=== PATIENT | female | born 1950 | race Caucasian/White ===

== ENCOUNTER 2017-07-23 11:28 | Observation (INO) | payer OTHER ==
[~2017-07-23] VITALS: Ht 149.9 cm; Wt 68.9 kg
--- NOTE | 2017-07-23 11:52 | ED NEURO DEFICIT/STROKE ---
History of Present Illness General Chief Complaint: Neuro Symptoms/ Deficit Stated Complaint: MEMORY LOSS, ?CONFUSION PER FRIEND SINCE 9AM Source: patient, old records, friend Exam Limitations: no limitations Allergies Coded Allergies: epinephrine (PALPITATIONS 07/23/17) Triage Note: 66 YEAR OLD FEMALE TO ER WITH HER FRIEND, PT ALERT AND ORIENTED TO PERSON /PLACE AND TIME. PT UPSET DUE TO SHE CAN'T REMEBER WHAT SHE DID YESTERDAY AND STATES THAT SHE FEELS LIKE SHE CAN'T REMEMBER A LOT FROM THIS AM. OFFERS NO OTHER COMPLAINTS AT THIS TIME. NEUROS INTACT. SPEECH CLEAR Triage Nurses Notes Reviewed? yes Onset: Abrupt Duration: hour(s): (2.5), constant Timing: recent history Severity: moderate Vision Problem? No Glaucoma? No Impaired Ability: difficulty with recall Baseline: alert, oriented x 3 Associated Symptoms: confusion HPI: 66 Year old female hld, osteopenia presents with friends and family for evaluation after the patient states that she has had difficulty recalling events over the past 2-1/2 days. She states that she woke up this morning around 7:30 and states for approximately an hour and a half she cannot remember the events that occurred this morning or yesterday. The symptoms she states began yesterday however states she does not remember getting home 2 nights ago from a get together with friends. She states that time she had one glass of wine. She denies any drug use no chest pain no headache. She states the symptoms have been making her feel anxious and nauseous however denies vomiting. No fever no chills. No known fall or loss of consciousness. No history of similar episodes in the past. Her family history is significant both her mother and father had multiple strokes and she states that her mother she believes had memory issues with her stroke. She denies any arm or leg weakness no facial droop. The friends that are with her states she's been acting her normal self otherwise no slurred speech no change in her mental status. (Tejal PITTMAN,Alton) Vital Signs & Intake/Output Vital Signs & Intake/Output Vital Signs Date Time Temp Pulse Resp B/P B/P Pulse O2 O2 Flow FiO2 Mean Ox Delivery Rate 07/23 1919 97.8 89 18 119/77 98 Room Air Room Air 07/23 1901 98.2 96 18 122/70 95 Room Air 07/23 1415 97.7 62 16 128/77 94 Room Air 07/23 1136 98.0 100 18 158/92 98 Room Air Reconcile Medications Aspirin (Ecotrin*) 81 MG TABLET. 1 TAB PO DAILY HEART HEALTH (Reported) Calcium Carbonate (Calcium) (Unknown Strength) TABLET (Unknown Dose) PO DAILY SUPPLEMENT (Reported) Cholecalciferol (Vitamin D3) 1,000 UNIT TABLET 2,000 IU PO DAILY Vit D . [place]-3 Fatty Acids/Fish Oil (Fish Oil 1,000 MG Capsule) 340 MG-1,000 MG CAPSULE 1 CAP PO DAILY SUPPLEMENT (Reported) (Pollo HENRY,Maryann) Past History Travel History Traveled to [place] past 21 day No Medical History Any Pertinent Medical History? see below for history Neurological: NONE EENT: NONE Cardiovascular: hyperlipidemia Respiratory: NONE Gastrointestinal: NONE Hepatic: NONE Renal: NONE Musculoskeletal: NONE Psychiatric: NONE Endocrine: NONE Blood Disorders: NONE Cancer(s): NONE BARN BOSS/Reproductive: NONE Surgical History Surgical History: none Psychosocial History What is your primary language Iraqi Tobacco Use: Never used ETOH Use: denies use Illicit Drug Use: denies illicit drug use Family History Hx Contributory? No (Alton Lopez) Review of Systems Review of Systems Constitutional: Reports: see HPI. Comments Review of systems: See HPI, All other systems negative. Constitutional, no chills no fever HEENT: no sore throat no congestion Cardiovascular: No chest pain Skin: no rashes, no change in skin Respiratory: No dyspnea no cough GI: No nausea no vomiting, no diarrhea : No dysuria Muscle skeletal: No joint pain, no back pain, no neck pain, Neurologic: , no headache Psych: No stress Heme/endocrine: No bruising Immunology: No lymphadenopathy (Alton Lopez) Physical Exam Physical Exam General Appearance: well developed/nourished, no apparent distress, alert, awake , anxious Cranial Nerves: normal hearing, normal speech, PERRL Comments: Well-developed well-nourished person in no acute distress HEENT: Normal EENT exam; PERRL, EOMI, HEAD is atraumatic. moist mucous membranes. Neck: Supple, normal range of motion Back: Nontender, Full range of motion Cardiovascular: Regular rate and rhythms no murmurs rubs Respiratory: Chest nontender.There were no bony deformities, no asymmetry. No respiratory distress. Patient speaking in full complete sentences. Breath sounds clear to auscultation bilaterally: NO W/R/R Abdomen: Soft, nontender nondistended, no appreciable organomegaly. Normal bowel sounds. No rebound/guarding, Extremity: No edema, full range of motion of extremities, normal and equal pulses bilaterally, 5 out of 5 strength noted to bilateral upper and lower extremities Neuro: Alert oriented x3, motor sensory normal, cranial nerves II through XII grossly intact. There were no obvious focal neurologic abnormalities. Skin: No appreciable rash on exposed skin, skin is warm and dry. Psych: Mood and affect is normal, memory and judgment is normal. Core Measures CVA/TIA Diagnosis: No NIH Stroke Scale NIH Stroke Scale Response Value Level of Consciousness alert 0 LOC Questions answers both correctly 0 LOC Commands obeys both correctly 0 Best Gaze normal 0 Visual Hull no visual loss 0 Facial Paresis normal 0 Motor Arm - Left no drift 0 Motor Arm - Right no drift 0 Motor Leg - Left no drift 0 Motor Leg - Right no drift 0 Limb Ataxia no ataxia 0 Sensory normal 0 Best Language no aphasia 0 Dysarthria normal articulation 0 Extinction and Inattention no neglect 0 Total 0 Date Last Known Well: 07/20/17 Time Last Known Well: 1999 Symptom Start Date: 07/23/17 Symptom Start Time: 1911 Reason tPA not ordered Medical Contraindication Swallow Evaluation Pass Swallow eval date 07/23/17 Swallow eval time 1553 Sepsis Present: No Sepsis Focused Exam Completed? No (Alton Lopez) Progress Differential Diagnosis: drug intoxication, electrolyte imbalance, encephalitis, hypoglycemia, seizure disorder, Head injury, anoxic brain injury, (carbon monoxide exposure) intoxication, drug or alcohol withdrawal, herpes simplex encephalitis, and toxic-metabolic encephalopathy, delirium Diagnostic Imaging: Viewed by Me: CT Scan. Discussed w/RAD: CT Scan. Radiology Impression: PATIENT: DAVID PRINCE ANN PRESENT AGE: 66 PATIENT ACCOUNT NO: [id number] : 50 LOCATION: [facility] ([place]) ORDERING PHYSICIAN: Maxim Gutierrez DO SERVICE DATE: 07/23/17-1 EXAM TYPE: CAT - CT HEAD WO IV CONTRAST EXAMINATION: CT HEAD WITHOUT CONTRAST CLINICAL INFORMATION: Can't remember events from a.m. COMPARISON: None. TECHNIQUE: Contiguous axial imaging was performed from the skull base to vertex without intravenous administration of contrast. DLP: 609 mGy-cm. FINDINGS: There is no intracranial hemorrhage, large infarction, or mass lesion. There is no extra-axial collection. The ventricles are normal in size and configuration without evidence of hydrocephalus. The paranasal sinuses are clear. The mastoids and middle ear cavities are clear. IMPRESSION: No acute intracranial abnormality identified. If there is concern for transient global amnesia consider brain MRI for further evaluation if clinically indicated. DICTATED BY: Arvind Izquierdo MD DATE/TIME DICTATED:07/23/171151 RN CORONARY CARE UNIT:[facility] DATE/TIME TRANSCRIBED:07/23/171151 CONFIDENTIAL, DO NOT COPY WITHOUT APPROPRIATE AUTHORIZATION. <Electronically signed in Other Vendor System> SIGNED BY: Arvind Izquierdo MD 07/23/17 1208 Initial ED EKG: none (Alton Lopze) Plan of Care: Orders Procedure Date/time Status Heart Healthy Diet 07/23 D Active Telemetry/Fluorescent Lamp Replacer 07/23 1552 Active Patient Data 07/[address] in observation 07/23 1540 Active ED Holding Orders 07/23 1540 Active Vital Signs 07/23 1540 Active Code Status 07/23 1540 Active PROLACTIN 07/23 1408 Complete EKG 07/23 1241 Active URINE DRUG SCREEN FOR ER ONLY 07/23 1221 Complete ETHANOL 07/23 1221 Complete COMPREHENSIVE METABOLIC PANEL 07/23 1221 Complete CBC WITHOUT DIFFERENTIAL 07/23 1221 Complete Intake & Output 07/23 1159 Active Marie Coma Scale 07/23 1140 Active NIH Stroke Scale 07/23 1139 Active Current Medications Sig/Josiane Start time Last Medication Dose Stop Time Status Admin Aspirin Buffered 81 MG DAILY 07/24 1000 AC (Ecotrin) Lorazepam 2 MG ONE ONE 07/23 1245 CAN (Ativan) 07/23 1246 Laboratory Tests 07/23/17 1408: Serum Alcohol < 10.0 07/23/17 1408: Anion Gap 9, Estimated GFR > 60, BUN/Creatinine Ratio 26.7 H, Glucose 92, Calcium 9.4, Total Bilirubin 0.4, AST 21, ALT 34, Alkaline Phosphatase 145 H, Total Protein 6.8, Albumin 3.9, Globulin 2.9, Albumin/Globulin Ratio 1.3, Prolactin 13.2, CBC w Diff NO MAN DIFF REQ, RBC 4.89, MCV 83.0, MCH 27.1, RDW 14.6 H, MPV 8.6, Gran % 57.5, Lymphocytes % 33.4, Monocytes % 7.5, Eosinophils % 1.2, Basophils % 0.4, Absolute Granulocytes 4.4, Absolute Lymphocytes 2.6, Absolute Monocytes 0.6, Absolute Eosinophils 0.1, Absolute Basophils 0, PUBS MCHC 32.7 L, Urine Opiates Screen < 100.00, Methadone Screen < 40, Barbiturate Screen < 60, Ur Phencyclidine Scrn < 6.00, Amphetamines Screen < 100, U Benzodiazepines Scrn < 85, Urine Cocaine Screen < 50, Urine Cannabis Screen < 5.00 07/23/17 1222: Prolactin Cancelled Labs ordered old records reviewed MRI ordered case discussed with Dr. Abad evaluate patient agrees with plan. Patient making Ativan 1 mg IV for MRI as she is feeling anxious with an enclosed MRI. [address] montgomery will consult. Dr. Abad spoke with Dr. Byers we will place her in telemetry it. PATIENT: DAVID PRINCE PRESENT AGE: 66 PATIENT ACCOUNT NO: [id number] : 50 LOCATION: [facility] ([place]) ORDERING PHYSICIAN: Maxim Gutierrez DO SERVICE DATE: 07/23/17-1140 EXAM TYPE: CAT - CT HEAD WO IV CONTRAST EXAMINATION: CT HEAD WITHOUT CONTRAST CLINICAL INFORMATION: Can't remember events from a.m. COMPARISON: None. TECHNIQUE: Contiguous axial imaging was performed from the skull base to vertex without intravenous administration of contrast. DLP: 609 mGy-cm. FINDINGS: There is no intracranial hemorrhage, large infarction, or mass lesion. There is no extra-axial collection. The ventricles are normal in size and configuration without evidence of hydrocephalus. The paranasal sinuses are clear. The mastoids and middle ear cavities are clear. IMPRESSION: No acute intracranial abnormality identified. If there is concern for transient global amnesia consider brain MRI for further evaluation if clinically indicated. DICTATED BY: Arvind Izquierdo MD DATE/TIME DICTATED:07/23/171151 RN CORONARY CARE UNIT:[facility] DATE/TIME TRANSCRIBED:07/23/171151 CONFIDENTIAL, DO NOT COPY WITHOUT APPROPRIATE AUTHORIZATION. <Electronically signed in Other Vendor System> SIGNED BY: Arvind Izquierdo MD 07/23/17 1208 PATIENT: DAVID PRINCE PRESENT AGE: 66 PATIENT ACCOUNT NO: [id number] : 50 LOCATION: [facility] ([place] ORDERING PHYSICIAN: Alton PITTMAN SERVICE DATE: 07/23/17 EXAM TYPE: MRI - MRI-HEAD W/O CISCO EXAMINATION: MR BRAIN WITHOUT CONTRAST CLINICAL INFORMATION: 66-year-old woman with amnesia for 2 days. COMPARISON: 07/23/[address] TECHNIQUE: MRI of the brain without contrast was obtained using routine sequences. FINDINGS: No focal reduced diffusion is seen to suggest acute or subacute cerebral ischemia. No intracranial mass, intracerebral edema, intra-axial blood products, midline shift, or extra-axial collection is visualized. The ventricles and sulcal spaces appear normal. Normal arterial and venous vascular flow voids are present. The paranasal sinuses are well aerated. IMPRESSION: Normal MR appearance of the brain. DICTATED BY: Ana Collins MD DATE/TIME DICTATED:07/23/171502 RN CORONARY CARE UNIT:[facility] DATE/TIME TRANSCRIBED:07/23/171502 CONFIDENTIAL, DO NOT COPY WITHOUT APPROPRIATE AUTHORIZATION. <Electronically signed in Other Vendor System> SIGNED BY: Ana Collins MD 07/23/17 1509 (Alton Lopez) (Pollo HENRY,Maryann) Departure Departure Time of Disposition: 1546 Disposition: STILL A PATIENT Condition: Stable Clinical Impression Primary Impression: Amnesia Referrals: Joann Packer MD (PCP/Family) Departure Forms: Customer Survey General Discharge Information Observation Note Spoke With: Dwight Byers MD Place Patient In: Non-ED OBS Care Area Rationale for Observation: My rational for observation is as follows TELE MONITORING, NEURO AND PYSCH CONSULT, NEURO CHECKS, PREMATURE DISCHARGE WOULD BE MEDICALLY HARMFUL THIS IS NOT AT THE PATIENTS BASELINE (Alton Lopez) Departure Prescriptions: Current Visit Scripts Cholecalciferol (Vitamin D3) 2,000 IU PO DAILY #30 TAB . PA/DATABASE SECURITY ADMINISTRATOR Co-Sign Statement Statement: ED Attending supervision documentation- [x] I saw and evaluated the patient. I have also reviewed all the pertinent lab results and diagnostic results. I agree with the findings and the plan of care as documented in the PA's/DATABASE SECURITY ADMINISTRATOR's documentation. [x] I have reviewed the ED Record and agree with the PA's/DATABASE SECURITY ADMINISTRATOR's documentation. [] Additions or exceptions (if any) to the PAs/DATABASE SECURITY ADMINISTRATOR's note and plan are summarized below: [] (Pollo HENRY,Maryann)
--- NOTE | 2017-07-23 12:08 | CT SCAN REPORT ---
EXAMINATION: CT HEAD WITHOUT CONTRAST CLINICAL INFORMATION: Can't remember events from a.m. COMPARISON: None. TECHNIQUE: Contiguous axial imaging was performed from the skull base to vertex without intravenous administration of contrast. DLP: 609 mGy-cm. FINDINGS: There is no intracranial hemorrhage, large infarction, or mass lesion. There is no extra-axial collection. The ventricles are normal in size and configuration without evidence of hydrocephalus. The paranasal sinuses are clear. The mastoids and middle ear cavities are clear. IMPRESSION: No acute intracranial abnormality identified. If there is concern for transient global amnesia consider brain MRI for further evaluation if clinically indicated.
[2017-07-23] MEDS ORDERED: ASPIRIN EC81 M1 PO (12:43)
[2017-07-23] MEDS ORDERED: CALCIUM500 M1 PO (12:44)
[2017-07-23] MEDS ORDERED: FISH OIL 1,0001 EACH PO (12:44)
[2017-07-23 14:23] LABS: ABSOLUTE BASOPHIL COUNT 0 /CUMM (0.0-0.2); ABSOLUTE EOSINOPHIL COUNT 0.1 /CUMM (0.0-0.7); ABSOLUTE GRANULOCYTE CT 4.4 /CUMM (1.4-6.5); ABSOLUTE LYMPH COUNT 2.6 /CUMM (1.2-3.4); ABSOLUTE MONOCYTE COUNT 0.6 /CUMM (0.10-0.60); BASOPHIL % 0.4 % (0.0-2.0); EOSINOPHIL % 1.2 % (0-5); GRANULOCYTE % 57.5 % (42.2-75.2); HEMATOCRIT 40.6 % (37-47); MEAN CORPUSCULAR HGB 27.1 PG (27.0-31.0); MEAN CORPUSCULAR HGB CONC 32.7 G/DL (33.0-37.0); MEAN PLATELET VOLUME 8.6 FL (7.4-10.4); PLATELET COUNT 237 /CUMM (130-400); RBC DISTRIBUTION WIDTH 14.6 % (11.5-14.5); RED BLOOD CELL CT 4.89 /CUMM (4.20-5.40); WHITE BLOOD CELL COUNT 7.7 /CUMM (4.8-10.8)
--- NOTE | 2017-07-23 15:09 | MRI REPORT ---
EXAMINATION: MR BRAIN WITHOUT CONTRAST CLINICAL INFORMATION: 66-year-old woman with amnesia for 2 days. COMPARISON: 07/23/[address] TECHNIQUE: MRI of the brain without contrast was obtained using routine sequences. FINDINGS: No focal reduced diffusion is seen to suggest acute or subacute cerebral ischemia. No intracranial mass, intracerebral edema, intra-axial blood products, midline shift, or extra-axial collection is visualized. The ventricles and sulcal spaces appear normal. Normal arterial and venous vascular flow voids are present. The paranasal sinuses are well aerated. IMPRESSION: Normal MR appearance of the brain.
--- NOTE | 2017-07-23 17:24 | History & Physical ---
Jacques HENRY,[facility] 07/23/17 1724: General Information and HPI History of Present Illness: Ms. Daniels is a 66-year-old female with past medical history of hyperlipidemia, questionable rheumatic heart disease, and lower back pain who presents within the lesion. The patient notes that she remembered everything that happened Sunday. However, on Sunday morning she woke up and was having difficulty tracking the time. She then called her friend and realized that she didn't remember several of the events that occurred yesterday. Because of this, her friend told her to come to the ER for further evaluation. The patient notes that she had one less than 1 on Sunday and one glass of wine with dinner on Sunday. She is able to remember some of the events after prompting or looking at her notes. She also is able to remember things that happened prior to Sunday and early in life would easily. She otherwise says that she had chest pain at rest in August but has not had it since. She feels fine now except being hungry and tired. She denies any loss of consciousness, fall, syncope, presyncope, x-ray, shortness of breath, recent sickness, sick contacts, tick bites, PET bites, fever, chills, dysuria, recent travel, abdominal pain, rash, focal weakness, numbness or tingling. She has a 4 pack year smoking history and quit in 1973. She drinks 2 drinks per week of alcohol and denies any drug use. She is allergic to Tylenol 3 that causes a rash. She is a family history of stroke in her mother and father and dementia in her mother but all late in life. Allergies/Medications Allergies: Coded Allergies: epinephrine (PALPITATIONS 07/23/17) Home Med list Aspirin (Ecotrin*) 81 MG TABLET.DR 1 TAB PO DAILY HEART HEALTH (Reported) Calcium Carbonate (Calcium) (Unknown Strength) TABLET (Unknown Dose) PO DAILY SUPPLEMENT (Reported) [place]-3 Fatty Acids/Fish Oil (Fish Oil 1,000 MG Capsule) 340 MG-1,000 MG CAPSULE 1 CAP PO DAILY SUPPLEMENT (Reported) Past History Travel History Traveled to [place] past 21 day No Medical History Neurological: NONE EENT: NONE Cardiovascular: hyperlipidemia Respiratory: NONE Gastrointestinal: NONE Hepatic: NONE Renal: NONE Musculoskeletal: NONE Psychiatric: NONE Endocrine: NONE Blood Disorders: NONE Cancer(s): NONE WOUND CARE RN/Reproductive: NONE Surgical History Surgical History: none Past Family/Social History Psychosocial History ETOH Use: denies use Illicit Drug Use: denies illicit drug use Review of Systems Review of Systems Constitutional: Reports: no symptoms. EENTM: Reports: no symptoms. Cardiovascular: Reports: no symptoms. Respiratory: Reports: no symptoms. GI: Reports: no symptoms. Genitourinary: Reports: no symptoms. Musculoskeletal: Reports: no symptoms. Skin: Reports: no symptoms. Neurological/Psychological: Reports: see HPI. Hematologic/Endocrine: Reports: no symptoms. Immunologic/Allergic: Reports: no symptoms. All Other Systems: Reviewed and Negative Exam & Diagnostic Data Last 24 Hrs of Vital Signs/I&O Vital Signs Date Time Temp Pulse Resp B/P B/P Pulse O2 O2 Flow FiO2 Mean Ox Delivery Rate 07/23 1901 98.2 96 18 122/70 95 Room Air 07/23 1415 97.7 62 16 128/77 94 Room Air 07/23 1136 98.0 100 18 158/92 98 Room Air Intake & Output 07/23 1600 07/23 0800 07/23 0000 Intake Total Output Total Balance Patient 152 lb Weight Physical Exam General Appearance Alert, Oriented X3, Cooperative, No Acute Distress Skin No Rashes, No Breakdown, No Significant Lesion HEENT Atraumatic, PERRLA, EOMI Cardiovascular Regular Rate, Normal S1, Normal S2 Lungs Clear to Auscultation Abdomen Normal Bowel Sounds, Soft, No Tenderness Neurological CN I-XII, left/right horizontal nystagmus bilaterally, wide based gait, positive romberg, no ataxis or dysdidochokinesia Last 24 Hrs of Labs/Dayne: Laboratory Tests 07/23/17 1408: Serum Alcohol < 10.0 07/23/17 1408: Anion Gap 9, Estimated GFR > 60, BUN/Creatinine Ratio 26.7 H, Glucose 92, Calcium 9.4, Total Bilirubin 0.4, AST 21, ALT 34, Alkaline Phosphatase 145 H, Total Protein 6.8, Albumin 3.9, Globulin 2.9, Albumin/Globulin Ratio 1.3, Prolactin 13.2, CBC w Diff NO MAN DIFF REQ, RBC 4.89, MCV 83.0, MCH 27.1, RDW 14.6 H, MPV 8.6, Gran % 57.5, Lymphocytes % 33.4, Monocytes % 7.5, Eosinophils % 1.2, Basophils % 0.4, Absolute Granulocytes 4.4, Absolute Lymphocytes 2.6, Absolute Monocytes 0.6, Absolute Eosinophils 0.1, Absolute Basophils 0, PUBS MCHC 32.7 L, Urine Opiates Screen < 100.00, Methadone Screen < 40, Barbiturate Screen < 60, Ur Phencyclidine Scrn < 6.00, Amphetamines Screen < 100, U Benzodiazepines Scrn < 85, Urine Cocaine Screen < 50, Urine Cannabis Screen < 5.00 07/23/17 1222: Prolactin Cancelled Assessment/Plan Assessment: Ms. Daniels is a 66-year-old female with past medical history of hyperlipidemia, questionable rheumatic heart disease, and lower back pain who presents within the lesion. On presentation, vital signs were T 98.0, HR 100, RR 18, BP 158/92, saturating 98% room air. Laboratories are 16 for normal CBC, normal BEP, negative LFTs, alkaline phosphatase 145, [place] 13.2. Head CT and MRI head were negative. She was treated with less pain in the emergency room. She will be placed in observation on telemetry and treated with following problem: 1. Transient global amnesia 2. Unsteady gait #Transient global amnesia/ Unsteady gait: Unclear etiology. DDx includes migraine vs seizure vs imaging negative stroke vs psychogenic. Cerebellar signs may be secondary to lorazepam. She has never had migraines or seizure in the past however. It is also possible that she is showing early manifestations of early-onset dementia. -Neuro consult - Ginger. -EEG -Carotid doppler -ASA -TTE -IV thiamine -B12/folate -TSH -Pt/OT -Speech eval DVT ppx with enoxparin Reg diet FC As Ranked By This Provider Problem List: 1. Amnesia Core Measures/Misc (04/01) Acute Coronary Syndrome ACS Diagnosis: No Congestive Heart Failure Congestive Heart Failure Diagnosis No Cerebrovascular Accident CVA/TIA Diagnosis: No Swallow Evaluation Pass VTE (View Protocol) VTE Risk Factors Age>40 No Mechanical VTE Prophylaxis d/t N/A MechProphylax Ordered No VTE Pharm Prophylaxis d/t NA PharmProphylax ordered Sepsis (View protocol) Sepsis Present: No Krystyna Reynoso MD 07/23/17 2008: Resident Review Statement Resident Statement: examined this patient, discussed with resident intern, agreed with resident intern Other Findings: This is a 66 yo female with PMH of hyperlipidemia, what sounds like rheumatic heart disease, and back pain who comes in for CC of "not remembering." She states that she woke up this morning around 8 am and went about usual routine noting nothing different. Then she said she lost track of time, until 9:45 am when she was speaking to a friend on the phone. Upon speaking to her friend she realized she had no memory of the previous day events. After much prompting from friend and reading through her calendar she states that she is able to remember most of the events. She has never had a similar episode. She denies any other associated symptoms such as fall, LOC, GTC seizure, loss of bladder bowel function, headache, head trauma, tick bite, recent exotic ingestions, travel, recent illness, sick contacts, rash, tingling, weakness, ataxia, gait disturbance, or numbness. She drank a glass of wine yesterday and another one the day before. Denies use of any kind of drugs. Soc hx significant for 2ppd smoking for 2 yrs and quit in 1973. Currently drinks about twice a week. Medication list includes Tums, [place]-3 and ASA. Family hx significant for stroke and dementia in mother in her last 80s and stroke in father in his 90s. Vitals: 97.7, 62-100, 16-18, 128/77-158/92, 98 Physical Exam: General Appearance Alert, Oriented X3, Cooperative, No Acute Distress Skin No Rashes, No Breakdown, No Significant Lesion HEENT Atraumatic, PERRLA, EOMI, bilat hornzontal nystagmus. Cardiovascular Regular Rate, Normal S1, Normal S2, no murmur appreciated Lungs Clear to Auscultation, no rhonchi or wheeze Abdomen Normal Bowel Sounds, Soft, No Tenderness Neurological CN I-XII intact, no facial asymmetry noted, nystagmus noted as above. Strength in all extremities intact, sensation WNL. On recall can only remember one object, second object recalled after giving a clue and third one she could not remember at all. No dysarthria, does have a wide based gait. Unable to maintain balance when walking. Failed heel to toe, Positive romberg, no pronator drift. No dysdiadokinesia. LE reflexes WNL. Pertinent labs: Nml head CT and MRI, CBC WNL, BMP WNL, AST/ALT WNL. ALKP 145, negative prolactin, negative UTOX. She recieved 1mg IV ativan in ED. ASSESSMENT: This is a 66 yo female with PMH of hyperlipidemia, what sounds like rheumatic heart disease, and back pain who comes in for CC of amnesia and found to have physical exam findings of nystagmus and ataxic gait but with normal neurologic imaging. Will admit this pt to telemetry for further work up of transient global amnesia. PLAN: 1. Transient global amnesia:DDX: Metabolic causes, seizure, CVA, demyelinating disease, viral infectious etiology, atypical migraine, psychogenic. Her memory loss seems to have largely resolved when I saw pt. She is AOX3, able to recall distant memory details, and even the events of what happened the day before. On physical exam she does have a prominent horizontal nystagmus present bilat. Denies any change in vision. She also has ataxic gait and +romberg. She did not have any difficulty ambulating prior to us performing physical exam. The memory loss and cerebellar signs seem to be temporally distinct from each other as the gait instability appeared when the memory loss is resolving. It is difficult to find cohesive etiology for such temporally and anatomically distinct deficits. Note, that pt did receive IV ativan x1 in ED around 1 PM. Unsure if the physical exam findings are secondary to medication. Her CT head and MRI are both negative for any mass lesions, signs of infection of evidence of CVA. As memory and cerebellum are largely supplied by two different circulations. At this time this does not seem like a classic CVA, regardless pt is outside of window of TPA by the time she presented to ED. * TSHr * Check b12 * Chck folic acid * echocardiogram * carotid US * EEG * Neuro consult * Give empiric thiamine * PT/OT/Speech consult * Give ASA 81 * Check lipid panel FC Chemical dvt ppx heart healthy diet Dwight Byers MD 07/23/172046: Attending MD Review Statement Attending Statement Attending MD Statement: examined this patient, discuss w/resident/PA/SATURATOR OPERATOR, agreed w/resident/PA/SATURATOR OPERATOR, discussed with family, reviewed EMR data (avail), reviewed images, amended to note Attending Assessment/Plan: The patient is a 66 yo female with h/o HL & ?rheumatic heart disease/mitral valve disease who presented in the [place] ED today with c/o 2.5 day history of difficulty recalling events. Today she could not recall events of yesterday. She does not recall arriving home from a gathering with friends 2 nights ago. Her family/friends are concerned as this is not like her. She denies any history of similar events. She denies headache, loss of consciousness, visual disturbance, use of alcohol or drugs, or increased stress/anxiety (above her normal as per patient). She does describe some nausea w/o emesis. There has been no focal weakness or dyscoordination. No speech finding difficulties or dysarthria. In the ED she underwent head CT and MRI which were negative. Physical Exam: VS: T 97.8, P 62-89, R 18, BP 158/92-122/70, PO 98% RA HEENT: eyes- PERRLA, EOMI charito- moist mucosa Neck: no bruits Chest: clear Cor: RRR nl S1, S2 w/o murm (pt states she has had murm, however not audible to me) Abd: BS+, soft, NT, - HSM Ext: no edema, pulses 2+ Neuro: alert & oriented x 3, fluent with speech, non-focal exam, gait not tested by me Labs/Tests- as above Impression/Plan: #Amnesia- ? transient, improving over last 2 days. Possible transient global amnesia. CT/MRI negative. No significant vascular risks, no h/o seizures or migraines. No imaging evidence of CVA. Plan: Bring in as OBServation to telemetry. q4h neuro checks. Neurology consult. EEG, ECHO ASA 81 mg daily (she usually takes). PT/OT/Speech Therapy (to evaluate memory, etc.) IV thiamine TSH, B12 #Unsteady Gait- noted by house staff. The patient ambulated ED and this may be related to Ativan given in ED. Concern regarding posterior circulation. Plan: Will follow-up in morning. Will consider doing CTA in morning to evaluate both anterior and posterior circulation (no carotid US).
[2017-07-24 08:00] LABS: ABSOLUTE BASOPHIL COUNT 0 /CUMM (0.0-0.2); ABSOLUTE EOSINOPHIL COUNT 0.2 /CUMM (0.0-0.7); ABSOLUTE GRANULOCYTE CT 3.1 /CUMM (1.4-6.5); ABSOLUTE LYMPH COUNT 3.5 /CUMM (1.2-3.4); ABSOLUTE MONOCYTE COUNT 0.6 /CUMM (0.10-0.60); BASOPHIL % 0.5 % (0.0-2.0); HEMATOCRIT 36.7 % (37-47); MEAN CORPUSCULAR HGB 27.6 PG (27.0-31.0); MEAN CORPUSCULAR HGB CONC 33.5 G/DL (33.0-37.0); MEAN CORPUSCULAR VOLUME 82.6 FL (81.0-99.0); MEAN PLATELET VOLUME 8.9 FL (7.4-10.4); PLATELET COUNT 212 /CUMM (130-400); RBC DISTRIBUTION WIDTH 14.8 % (11.5-14.5); RED BLOOD CELL CT 4.45 /CUMM (4.20-5.40); WHITE BLOOD CELL COUNT 7.4 /CUMM (4.8-10.8)
--- NOTE | 2017-07-24 08:14 | PN- Housestaff ---
See Addendum Subjective Follow-up For: Transient global amnesia Subjective: No overnight events. Patient remembers events from yesterday and did not have any issues overnight. No CP, SOB, or other problems. Review of Systems Constitutional: Reports: no symptoms. EENTM: Reports: no symptoms. Cardiovascular: Reports: no symptoms. Respiratory: Reports: no symptoms. Gastrointestinal: Reports: no symptoms. Genitourinary: Reports: no symptoms. Musculoskeletal: Reports: no symptoms. Skin: Reports: no symptoms. Neurological/Psychological: Reports: see HPI. Hematologic/Endocrine: Reports: no symptoms. Immunologic/Allergic: Reports: no symptoms. Objective Last 24 Hrs of Vital Signs/I&O Vital Signs Date Time Temp Pulse Resp B/P B/P Pulse O2 O2 Flow FiO2 Mean Ox Delivery Rate 07/24 618 98.5 66 20 110/58 97 Room Air 07/23 2132 98.1 83 18 116/73 97 Room Air 07/23 1920 97.8 89 18 119/77 98 Room Air Room Air 07/23 1901 98.2 96 18 122/70 95 Room Air 07/23 1415 97.7 62 16 128/77 94 Room Air 07/23 1136 98.0 100 18 158/92 98 Room Air Intake & Output 07/24 1600 07/24 0800 07/24 0000 Intake Total 51 Output Total Balance 51 Intake, IV 51 Physical Exam General Appearance: Alert, Oriented X3, Cooperative, No Acute Distress Cardiovascular: Regular Rate, Normal S1, Normal S2 Lungs: Clear to Auscultation Abdomen: Normal Bowel Sounds, Soft, No Tenderness Neurological: Normal Speech, Strength at 5/5 X4 Ext, Sensation Intact, Cranial Nerves 3-12 NL, gait steady, no romberg Extremities: No Edema, Normal Pulses, No Tenderness/Swelling Current Medications: Current Medications Sig/Josaine Start time Last Medication Dose Route Stop Time Status Admin Acetaminophen 650 MG Q6P PRN 07/23 2100 AC PO Aspirin Buffered 81 MG DAILY 07/24 1000 AC PO Enoxaparin Sodium 40 MG DAILY 07/24 1000 AC SC Ibuprofen 600 MG Q6P PRN 07/23 2100 AC PO Lorazepam 0 .STK-MED ONE 07/23 1309 DC .ROUTE Lorazepam 2 MG ONE ONE 07/23 1245 CAN IV 07/23 1246 Lorazepam 1 MG ONCE ONE 07/23 1245 DC 07/23 IV 07/23 1246 1318 Oxycodone/ 2 TAB Q6P PRN 07/23 2100 AC Acetaminophen PO Thiamine HCl 0 .STK-MED ONE 07/23 2003 DC .ROUTE Thiamine HCl 100 MG ONCE ONE 07/23 194 DC 07/23 Sodium Chloride 50 ML IV 07/23 Last 24 Hrs of Lab/Dayne Results Last 24 Hrs of Labs/Mics: Laboratory Tests 07/24/17 0621: Anion Gap 11, Estimated GFR > 60, BUN/Creatinine Ratio 35.0 H, Total Bilirubin 0.4, Direct Bilirubin 0.2, AST 18, ALT 29, Alkaline Phosphatase 122, Total Protein 5.9 L, Albumin 3.2 L, Triglycerides 42, Cholesterol 227 H, LDL Cholesterol, Calc 143 H, HDL Cholesterol 76 H, Cholesterol/HDL Ratio 3, CBC w Diff Pending, WBC Pending, RBC Pending, Hgb Pending, Hct Pending, MCV Pending, MCH Pending, RDW Pending, Plt Count Pending, MPV Pending, PUBS MCHC Pending 07/23/17 1408: Serum Alcohol < 10.0 07/23/17 1408: Anion Gap 9, Estimated GFR > 60, BUN/Creatinine Ratio 26.7 H, Glucose 92, Calcium 9.4, Total Bilirubin 0.4, AST 21, ALT 34, Alkaline Phosphatase 145 H, Total Protein 6.8, Albumin 3.9, Globulin 2.9, Albumin/Globulin Ratio 1.3, Vitamin B12 779, Folate 18.7, TSH 1.720, Free T4 1.09, Prolactin 13.2, CBC w Diff NO MAN DIFF REQ, RBC 4.89, MCV 83.0, MCH 27.1, RDW 14.6 H, MPV 8.6, Gran % 57.5, Lymphocytes % 33.4, Monocytes % 7.5, Eosinophils % 1.2, Basophils % 0.4, Absolute Granulocytes 4.4, Absolute Lymphocytes 2.6, Absolute Monocytes 0.6, Absolute Eosinophils 0.1, Absolute Basophils 0, PUBS MCHC 32.7 L, Urine Opiates Screen < 100.00, Methadone Screen < 40, Barbiturate Screen < 60, Ur Phencyclidine Scrn < 6.00, Amphetamines Screen < 100, U Benzodiazepines Scrn < 85, Urine Cocaine Screen < 50, Urine Cannabis Screen < 5.00 07/23/17 1222: Prolactin Cancelled Assessment/Plan Assessment: Ms. Daniels is a 66-year-old female with past medical history of hyperlipidemia, questionable rheumatic heart disease, and lower back pain who presents within amnesia. Problem List: 1. Transient global amnesia 2. Unsteady gait #Transient global amnesia/ Unsteady gait: Unclear etiology. DDx includes migraine vs seizure vs imaging negative stroke vs psychogenic. Cerebellar signs were likely secondary to the lorazepam given that they are no longer present. She has never had migraines or seizure in the past however. It is also possible that she is showing early manifestations of early-onset dementia. EKG and troponins 3 were negative. Carotid Doppler was normal. At this point, does not appear like anything acute is going on. She may need further workup as an outpatient. -Neuro consult: The neurology service, Dr. Miles, was consulted last night and an urgent consult was placed. However they did not leave a note or see the patient. Consult was placed again this morning. -EEG -ASA -TTE can be done outpatient -Speech eval DVT ppx with enoxparin Reg diet FC Problem List: 1. Amnesia Pain Ratin Pain Location: no pain Pain Goal: Remain pain free Pain Plan: see a/p Tomorrow's Labs & Rationales: none
--- NOTE | 2017-07-24 10:24 | ULTRASOUND REPORT ---
EXAMINATION: US DUPLEX CAROTID AND VERTEBRAL CLINICAL INFORMATION: 66-year-old female with amnesia and nystagmus COMPARISON: None TECHNIQUE: Real-time ultrasound and Doppler techniques (integrating B-mode 2D vascular images, Doppler spectral analysis and color flow Doppler imaging) were utilized to interrogate the extracranial carotid and vertebral arteries bilaterally. The degree of stenosis determined by criteria similar to NASCET. FINDINGS: No plaque is seen at the carotid bifurcations or within the internal carotid arteries. All velocities are within normal limits as follows: Right: The common carotid artery velocity is 119 cm/s. The internal carotid artery velocities are 88 cm/s systolic and 19 cm/s diastolic. The external carotid artery velocity is 91 cm/s. Left: The common carotid artery velocity is 154 cm/s. The internal carotid artery velocities are 84 cm/s systolic and 18 cm/s diastolic. The external carotid artery velocity is 83 cm/s. ADDITIONAL FINDINGS: 1. The vertebral arteries show antegrade flow. 2. The external carotid arteries appear normal. IMPRESSION: No evidence of a hemodynamically significant stenosis involving the internal carotid arteries.
[2017-07-24] MEDS ORDERED: VITAMIN D31000 UNI2 PO ×2 (14:45→16:27)
--- NOTE | 2017-07-24 14:46 | Patient Discharge Instructions ---
Discharge Instructions General Discharge Information You were seen/treated for: Transient global amnesia Watch for these problems: Fever, chest pain, shortness of breath, focal weakness/numbness Special Instructions: Please take all medications as directed. Please follow up with your primary care doctor. Diet Continue normal diet: Yes Activity Full Activity/No Limits: Yes Acute Coronary Syndrome Inclusion Criteria At DC or during hospital stay patient has or had the following: ACS DIAGNOSIS No Discharge Core Measures Meds if any: Prescribed or Continued at Discharge Meds if any: NOT Prescribed or Continued at Discharge Congestive Heart Failure Inclusion Criteria At DC or during hospital stay patient has or had the following: CHF DIAGNOSIS No Discharge Core Measures Meds if any: Prescribed or Continued at Discharge Meds if any: NOT Prescribed or Continued at Discharge Cerebrovascular accident Inclusion Criteria At DC or during hospital stay patient has or had the following: CVA/TIA Diagnosis No Discharge Core Measures Meds if any: Prescribed or Continued at Discharge Meds if any: NOT Prescribed or Continued at Discharge Venous thromboembolism Inclusion Criteria VTE Diagnosis No VTE Type NONE VTE Confirmed by (Test) NONE Discharge Core Measures - Per Current guidelines, there needs to be overlap - treatment for the first 5 days of Warfarin therapy. - If discharged on Warfarin prior to 5 days of - overlap therapy, the patient will need to be - assessed for post discharge needs including - *Post discharge parental anticoagulation - *Warfarin and/or parental anticoagulation education - *Follow up date to check INR post discharge At least 5 days overlap therapy as Inpatient No Meds if any: Prescribed or Continued at Discharge Note: Overlap Therapy is Warfarin and Anticoagulant Meds if any: NOT Prescribed or Continued at Discharge
[2017-07-24 16:02] VITALS: BP 115/74
--- NOTE | 2017-07-24 16:13 | Cons- Neurology ---
General Information and HPI Consulting Request Date of Consult: 07/24/17 Requested By: Anjel Skinner MD Reason for Consult: Acute loss of memory Source of Information: patient, old records Exam Limitations: no limitations History of Present Illness: 66/F awakened feeling that something was wrong Sunday07/23/17 when she found it was 10 am when she got out of the shower. She could not recall emails or activites of the afternoon before. No difficulty speaking, no weakness or paresthesias, no headache. No prior similar episodes, no hx of seizures, stroke or head injuries. Now recalls some of Sunday's activities, and recalls activities here in the ER this am and yesterday afternoon. Allergies/Medications Allergies: Coded Allergies: epinephrine (PALPITATIONS 07/23/17) Home Med List: Aspirin (Ecotrin*) 81 MG TABLET.DR 1 TAB PO DAILY HEART HEALTH (Reported) Calcium Carbonate (Calcium) (Unknown Strength) TABLET (Unknown Dose) PO DAILY SUPPLEMENT (Reported) Cholecalciferol (Vitamin D3) 1,000 UNIT TABLET 2,000 IU PO DAILY Vit D [place]-3 Fatty Acids/Fish Oil (Fish Oil 1,000 MG Capsule) 340 MG-1,000 MG CAPSULE 1 CAP PO DAILY SUPPLEMENT (Reported) Current Medications: Current Medications Sig/Josiane Start time Last Medication Dose Route Stop Time Status Admin Acetaminophen 650 MG Q6P PRN 07/23 2100 AC PO Aspirin Buffered 81 MG DAILY 07/24 1000 AC 07/24 PO 0946 Cholecalciferol 2,000 IU DAILY 07/24 1130 AC 07/24 PO 1246 Enoxaparin Sodium 40 MG DAILY 07/24 1000 AC 07/24 SC 0946 Ibuprofen 600 MG Q6P PRN 07/23 2100 AC PO Oxycodone/ 2 TAB Q6P PRN 07/23 2100 AC Acetaminophen PO Thiamine HCl 0 .STK-MED ONE 07/23 2003 DC .ROUTE Thiamine HCl 100 MG ONCE ONE 07/23 1944 DC 07/23 Sodium Chloride 50 ML IV 07/23 Review of Systems Review of Systems: the complete 12 point medical ROS is normal, no complaints Past History Travel History Traveled to [place] past 21 day No Medical History Neurological: NONE EENT: NONE Cardiovascular: hyperlipidemia Respiratory: NONE Gastrointestinal: NONE Hepatic: NONE Renal: NONE Musculoskeletal: NONE Psychiatric: NONE Endocrine: NONE Blood Disorders: NONE 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 Surgical History Surgical History: 1 Psychosocial History Smoking Status: Never Smoked ETOH Use: denies use Illicit Drug Use: denies illicit drug use Exam & Diagnostic Data Vital Signs and I&O Vital Signs Date Time Temp Pulse Resp B/P B/P Pulse O2 O2 Flow FiO2 Mean Ox Delivery Rate 07/24 1602 98.3 70 16 115/74 96 Room Air 07/24 1257 98.5 72 16 106/73 96 Room Air 07/24 0854 97.6 71 18 112/78 97 Room Air 07/24 0619 98.5 66 20 110/58 97 Room Air 07/23 2132 98.1 83 18 116/73 97 Room Air 07/23 1920 97.8 89 18 119/77 98 Room Air Room Air 07/23 1901 98.2 96 18 122/70 95 Room Air Intake & Output 07/24 1600 07/24 0800 07/24 0000 Intake Total 740 51 Output Total 360 Balance 380 51 Intake, IV 51 Intake, Oral 740 Output, Urine 360 Patient 152 lb Weight Physical Exam: Looks well no bruits, murmur periph pulses intact no murmur, cor regular alert fully oriented IR 3/3, STM 3/3, remote recall normal speech language, fund of knowlege normal VFF fundi normal EOMI P4ERRL CN V-XII normal motor power/tone normal sensory screens normal coordinatio and gait normal Last 48 Hours of Lab Results: Laboratory Tests 07/24 07/23 0621 1408 Chemistry Sodium (137 - 145 mmol/L) 142 Potassium (3.5 - 5.1 mmol/L) 4.3 Chloride (98 - 107 mmol/L) 107 Carbon Dioxide (22 - 30 mmol/L) 25 Anion Gap (5 - 16) 11 BUN (7 - 17 mg/dL) 21 H Creatinine (0.5 - 1.0 mg/dL) 0.6 Estimated GFR (>60 ml/min) > 60 BUN/Creatinine Ratio (7 - 25 %) 35.0 H Total Bilirubin (0.2 - 1.3 mg/dL) 0.4 Direct Bilirubin (< 0.4 mg/dL) 0.2 AST (14 - 36 U/L) 18 ALT (9 - 52 U/L) 29 Alkaline Phosphatase (<127 U/L) 122 Total Protein (6.3 - 8.2 g/dL) 5.9 L Albumin (3.5 - 5.0 g/dL) 3.2 L Triglycerides (<150 mg/dL) 42 Cholesterol (<200 MG/DL) 227 H LDL Cholesterol, Calc (65 - 129 mg/dL) 143 H HDL Cholesterol (40 - 60 mg/dL) 76 H Cholesterol/HDL Ratio (0.00 - 4.23 %) 3 25-OH Vitamin D Total (30 - 100 ng/ml) 27.4 L Hematology CBC w Diff NO MAN DIFF REQ WBC (4.8 - 10.8 /CUMM) 7.4 RBC (4.20 - 5.40 /CUMM) 4.45 Hgb (12.0 - 16.0 G/DL) 12.3 Hct (37 - 47 %) 36.7 L MCV (81.0 - 99.0 FL) 82.6 MCH (27.0 - 31.0 PG) 27.6 RDW (11.5 - 14.5 %) 14.8 H Plt Count (130 - 400 /CUMM) 212 MPV (7.4 - 10.4 FL) 8.9 Gran % (42.2 - 75.2 %) 42.0 L Lymphocytes % (20.5 - 51.1 %) 46.7 Monocytes % (1.7 - 9.3 %) 7.8 Eosinophils % (0 - 5 %) 3.0 Basophils % (0.0 - 2.0 %) 0.5 Absolute Granulocytes (1.4 - 6.5 /CUMM) 3.1 Absolute Lymphocytes (1.2 - 3.4 /CUMM) 3.5 H Absolute Monocytes (0.10 - 0.60 /CUMM) 0.6 Absolute Eosinophils (0.0 - 0.7 /CUMM) 0.2 Absolute Basophils (0.0 - 0.2 /CUMM) 0 PUBS MCHC (33.0 - 37.0 G/DL) 33.5 Toxicology Serum Alcohol (<10 MG/DL) < 10.0 07/23 07/23 1408 1222 Chemistry Sodium (137 - 145 mmol/L) 141 Potassium (3.5 - 5.1 mmol/L) 4.2 Chloride (98 - 107 mmol/L) 105 Carbon Dioxide (22 - 30 mmol/L) 28 Anion Gap (5 - 16) 9 BUN (7 - 17 mg/dL) 16 Creatinine (0.5 - 1.0 mg/dL) 0.6 Estimated GFR (>60 ml/min) > 60 BUN/Creatinine Ratio (7 - 25 %) 26.7 H Glucose (65 - 99 mg/dL) 92 Calcium (8.4 - 10.2 mg/dL) 9.4 Total Bilirubin (0.2 - 1.3 mg/dL) 0.4 AST (14 - 36 U/L) 21 ALT (9 - 52 U/L) 34 Alkaline Phosphatase (<127 U/L) 145 H Total Protein (6.3 - 8.2 g/dL) 6.8 Albumin (3.5 - 5.0 g/dL) 3.9 Globulin (1.9 - 4.2 gm/dL) 2.9 Albumin/Globulin Ratio (1.1 - 2.2 %) 1.3 Vitamin B12 (239 - 931 pg/mL) 779 Folate (2.76 - 20.0 ng/mL) 18.7 TSH (0.270 - 4.200 uIU/mL) 1.720 Free T4 (0.78 - 2.44 ng/dL) 1.09 Prolactin (3.0 - 18.6 ng/mL) 13.2 Cancelled Hematology CBC w Diff NO MAN DIFF REQ WBC (4.8 - 10.8 /CUMM) 7.7 RBC (4.20 - 5.40 /CUMM) 4.89 Hgb (12.0 - 16.0 G/DL) 13.3 Hct (37 - 47 %) 40.6 MCV (81.0 - 99.0 FL) 83.0 MCH (27.0 - 31.0 PG) 27.1 RDW (11.5 - 14.5 %) 14.6 H Plt Count (130 - 400 /CUMM) 237 MPV (7.4 - 10.4 FL) 8.6 Gran % (42.2 - 75.2 %) 57.5 Lymphocytes % (20.5 - 51.1 %) 33.4 Monocytes % (1.7 - 9.3 %) 7.5 Eosinophils % (0 - 5 %) 1.2 Basophils % (0.0 - 2.0 %) 0.4 Absolute Granulocytes (1.4 - 6.5 /CUMM) 4.4 Absolute Lymphocytes (1.2 - 3.4 /CUMM) 2.6 Absolute Monocytes (0.10 - 0.60 /CUMM) 0.6 Absolute Eosinophils (0.0 - 0.7 /CUMM) 0.1 Absolute Basophils (0.0 - 0.2 /CUMM) 0 PUBS MCHC (33.0 - 37.0 G/DL) 32.7 L Toxicology Urine Opiates Screen (>2000 NG/ML) < 100.00 Methadone Screen (>300 NG/ML) < 40 Barbiturate Screen (>200 NG/ML) < 60 Ur Phencyclidine Scrn (>25 NG/ML) < 6.00 Amphetamines Screen (>1000 NG/ML) < 100 U Benzodiazepines Scrn (>200 NG/ML) < 85 Urine Cocaine Screen (>300 NG/ML) < 50 Urine Cannabis Screen (>50 NG/ML) < 5.00 Imaging/Other Studies: MRI No focal reduced diffusion is seen to suggest acute or subacute cerebral ischemia. No intracranial mass, intracerebral edema, intra-axial blood products, midline shift, or extra-axial collection is visualized. The ventricles and sulcal spaces appear normal. Normal arterial and venous vascular flow voids are present. The paranasal sinuses are well aerated. IMPRESSION: Normal MR appearance of the brain. CT normal Dopplers normal Assessment/Plan Assessment: Transient global amnesia Recommendations: OK to discharge home outpatient EEG and follow-up Consult Acknowledgment - Thank you for your consult request.
--- NOTE | 2017-07-27 13:03 | ECHOCARDIOGRAM REPORT ---
DAVID PRINCE Age: 66 : 1950 Gender: F Exam Date: 07/24/2017 10:27 Exam Location: ER Ht (in): 59 Wt (lb): 152 BSA: 1.72 BP: 110 / 58 Ordering Physician: CECIL Referring Physician: CECIL Technologist: Reyes Naranjo RDCS Room Number: 6 Indications: STROKE Rhythm: Sinus Technical Quality: Good FINDINGS Left Ventricle Normal left ventricular size, wall thickness and systolic function with no obvious regional wall motion abnormalities. The ejection fraction is visually estimated at >65 %. Abnormal relaxation filling pattern of the left ventricle for age (stage 1 diastolic dysfunction). Right Ventricle The right ventricle is normal in size and function. Right Atrium The right atrium is normal in size. Left Atrium The left atrium is normal in size. The interatrial septum is intact. Mitral Valve The mitral valve is normal in structure and function. There is trace mitral regurgitation. Aortic Valve Structurally normal aortic valve without significant sclerosis or stenosis. There is trace aortic regurgitation. Tricuspid Valve Structurally normal tricuspid valve. Trace tricuspid regurgitation. Unable to estimate the right ventricular systolic pressure. Pulmonic Valve Structurally normal pulmonic valve. There is no pulmonic regurgitation. Pericardium There is a small nonhemodynamically significant pericardial effusion seen. Great Vessels Normal aortic root dimension. The aortic arch and great vessels are well seen and are normal. CONCLUSIONS Normal left ventricular size, wall thickness and systolic function with no obvious regional wall motion abnormalities. Abnormal relaxation filling pattern of the left ventricle for age (stage 1 diastolic dysfunction). The left atrium is normal in size. The mitral valve is normal in structure and function. Structurally normal aortic valve without significant sclerosis or stenosis. There is trace aortic regurgitation. Unable to estimate the right ventricular systolic pressure. There is a small nonhemodynamically significant pericardial effusion seen. Report amended to correct patient identifiers.. Devan Mendez M.D. (Electronically Signed) Final Date: 24 July 2017 17:19 Amended: 26 July 2017 12:31 MEASUREMENTS (Male / Female) Normal Values 2D ECHO LV Diastolic Diameter PLAX 4.8 cm 4.2 - 5.9 / 3.9 - 5.3 cm LV Systolic Diameter PLAX 3.2 cm 2.1 - 4.0 cm LV Fractional Shortening PLAX 33.3 % 25 - 46 % LV Ejection Fraction 2D Teich 61.9 % IVS Diastolic Thickness 1.0 cm LVPW Diastolic Thickness 0.8 cm LV Relative Wall Thickness 0.4 RV Internal Dim ED PLAX 2.6 cm 1.9 - 3.8 cm LVOT Diameter 1.7 cm Aortic Root Diameter 3.0 cm LA Systolic Diameter LX 3.4 cm 3.0 - 4.0 / 2.7 - 3.8 cm LA Volume 23.0 cm 18 - 58 / 22 - 52 cm Ascending Aorta Diameter 3.3 cm DOPPLER AV Peak Velocity 146.0 cm/s AV Peak Gradient 8.5 mmHg AV Mean Velocity 106.0 cm/s AV Mean Gradient 5.0 mmHg AV Velocity Time Integral 31.9 cm AI Deceleration [place] 156.0 cm/s AI Peak Velocity 329.0 cm/s AI Pressure Half Time 619.0 ms AI Peak Gradient 43.3 mmHg LVOT Peak Velocity 96.3 cm/s LVOT Peak Gradient 3.7 mmHg LVOT Mean Velocity 65.1 cm/s LVOT Mean Gradient 2.0 mmHg LVOT Velocity Time Integral 21.2 cm LVOT Stroke Volume 48.1 cm AV Area Cont Eq vti 1.5 cm AV Area Cont Eq pk 1.5 cm MV Peak Velocity 82.7 cm/s MV Peak Gradient 2.7 mmHg MV Mean Velocity 50.8 cm/s MV Mean Gradient 1.0 mmHg Mitral E Point Velocity 68.6 cm/s Mitral A Point Velocity 92.3 cm/s Mitral E to A Ratio 0.7 MV PHT Velocity 74.7 cm/s MV Deceleration [place] 196.0 cm/s MV Pressure Half Time 114.3 ms MV Area PHT 1.9 cm MV Deceleration Time 236.0 ms PV Peak Velocity 74.4 cm/s PV Peak Gradient 2.2 mmHg PV Mean Velocity 53.4 cm/s PV Mean Gradient 1.0 mmHg PV Velocity Time Integral 16.0 cm LV E' Lateral Velocity 8.6 cm/s Mitral E to LV E' Lateral Ratio 8.0 LV E' Septal Velocity 5.5 cm/s Mitral E to LV E' Septal Ratio 12.6
== END 2017-07-24 17:28 ==
LOC: ERH 11:28 → ERHI 15:40 → CANRESERV 07-24 12:38 → ENRESERV 07-24 12:38 → ERHI 07-24 14:33
PROVIDERS: Physician Assistant Medical; Student in an Organized Health Care Education/Training Program
DX: G45.4 Transient global amnesia (principal); E78.5 Hyperlipidemia, unspecified; Z79.82 Long term (current) use of aspirin; M54.5 Low back pain; R26.9 Unspecified abnormalities of gait and mobility; Z79.899 Other long term (current) drug therapy; H55.00 Unspecified nystagmus; Z87.891 Personal history of nicotine dependence
CPT/HCPCS: 1011; 6090; 70551; 80307; 82436; 92523-GN; 93005; 93010; 93306; 96365; 96372; 96375; 97116-GP; 97161-GP; 97166-GO; G0378; G0480; G8978-GP; G8979-GP; G8980-GP; G8990-GO; G8992-GO; G9168-GN; G9169-GN; J1650